=== PATIENT | male | born 1990 | race Caucasian/White ===

== ENCOUNTER 2024-07-12 01:00 | Emergency (ER) | payer SELFPAY ==
[~2024-07-12] VITALS: Ht 172.7 cm; Wt 68.0 kg
[~2024-07-12 01:00] MED LIST: ADVAIR; [UNRECOGNIZED DRUG - OTHER]
[2024-07-12] MEDS ORDERED: KETOROLAC TROMETHAMINE 30 MG INJ ONE (01:28)
[2024-07-12] MEDS: KETOROLAC TROMETHAMINE 30 MG INJ IVP ONE (01:34)
[2024-07-12] MEDS ORDERED: ONDANSETRON 4 MG/2 ML VIAL ONE ×2 (01:35→02:06)
[2024-07-12] MEDS: IV NS 1000 ML 1,000 ML IV ONE (01:38)
[2024-07-12 01:40] LABS: BASOPHILS # (AUTO) 0.1 K/UL (0.0-0.2); EOSINOPHILS # (AUTO) 0.3 K/uL (0.0-0.7); EOSINOPHILS % (AUTO) 1.9 % (0.0-7.0); HEMATOCRIT 46.3 % (36.7-47.1); HEMOGLOBIN 15.9 g/dL (12.5-16.3); LYMPHOCYTES # (AUTO) 3.5 K/uL (0.8-4.8); LYMPHOCYTES % (AUTO) 25.6 % (20.5-51.5); MEAN CORPUSCULAR HEMOGLOBIN 31.8 uug (23.8-33.4); MEAN CORPUSCULAR HGB CONC 34 g/dL (32.5-36.3); MEAN CORPUSCULAR VOLUME 92.7 fL (73.0-96.2); MONOCYTES # (AUTO) 0.8 K/uL (0.1-1.30); MONOCYTES % (AUTO) 5.9 % (0.0-11.0); NEUTROPHILS # (AUTO) 9.1 K/uL (1.8-8.9); NEUTROPHILS % (AUTO) 65.6 % (38.5-71.5); PLATELET COUNT (AUTO) 268 K/uL (152-348); RED BLOOD CELL COUNT(AUTO) 4.99 MIL/uL (4.06-5.63); WHITE BLOOD COUNT (AUTO) 13.8 K/uL (3.6-10.2)
[2024-07-12] MEDS: ONDANSETRON 4 MG/2 ML VIAL IV ONE ×2 (01:54→02:24)
[2024-07-12 01:55] LABS: ALANINE AMINOTRANSFERASE 26 U/L (16-63); ALBUMIN 4.6 g/dL (3.4-5.0); ALKALINE PHOSPHATASE 77 U/L (50-136); ASPARTATE AMINOTRANSFERASE 12 U/L (15-37); BILIRUBIN,TOTAL 0.9 mg/dL (0.2-1.0); CALCIUM 7.9 mg/dL (8.5-10.1); CARBON DIOXIDE 25 mmol/L (21-32); CHLORIDE 101 mmol/L (98-107); CREATININE 1.2 mg/dL (0.6-1.3); GLUCOSE 136 mg/dL (74-106); LIPASE 23 U/L (16-77); SODIUM SERUM 141 mmol/L (136-145); TOTAL PROTEIN, SERUM 8.2 g/dL (6.4-8.2); UREA NITROGEN, BLOOD 11 mg/dL (7-18)
[2024-07-12 01:58] LABS: POTASSIUM 2.7 mmol/L (3.5-5.1)
[2024-07-12 02:01] LABS: ETHANOL < 3 MG/DL (0-10)
[2024-07-12] MEDS ORDERED: MORPHINE SULFATE 4 MG/1 ML DISP.SYRIN ONE (02:06)
[2024-07-12] MEDS ORDERED: POTASSIUM CHLORIDE 50 ML ONE ×2 (02:06→03:20)
[2024-07-12] MEDS ORDERED: MORPHINE SULFATE 2 MG/1 ML DISP.SYRIN ONE (02:18)
[2024-07-12] MEDS: POTASSIUM CHLORIDE 50 ML IV SCH (02:24)
[2024-07-12] MEDS: MORPHINE SULFATE 2 MG/1 ML DISP.SYRIN IV ONE (02:38)
[2024-07-12] MEDS ORDERED: TAMS-3 PO (03:40)
[2024-07-12] MEDS ORDERED: KETO10TA2 PO (03:40)
[2024-07-12 03:53] VITALS: O2SAT 98
== END 2024-07-12 04:11 | disposition home or self-care (01) ==
LOC: ER 01:16
DX: N20.0 Calculus of kidney (principal); R10.9 Unspecified abdominal pain; Z79.51 Long term (current) use of inhaled steroids; Z88.7 Allergy status to serum and vaccine
CPT/HCPCS: 80053; 83690; 83735; 85025; 85379; 36415; 74176; 99284; 80320; J1885; J2405 ×2; J3480 ×2; J2270 ×2; J7040 ×2; G0480